=== PATIENT | female | born 1990 | race African-American/Black ===

== ENCOUNTER 2020-04-10 09:59 | Emergency (ER) | payer SELFPAY ==
[~2020-04-10] VITALS: Ht 162.6 cm; Wt 90.3 kg
[2020-04-10 10:04] VITALS: BP 119/81
--- NOTE | 2020-04-10 10:04 | NUR ---
Patient wheelchair assisted to bed 6.
--- NOTE | 2020-04-10 10:15 | NUR ---
PATIENT PRESENTS TO ED WITH ADULT ASTHMA EXACERBATION THIS MORNING. PT STATES HER AT HOME INHALER DID NOT IMPROVE HER SYMPTOMS. DENIES N/V/D; SKIN IS PINK/WARM/DRY; AAOX4 WITH EVEN AND STEADY GAIT; LUNGS CLEAR BL; HR EVEN AND REGULAR; PT DENIES ANY FEVER, CP, SOB, OR COUGH AT THIS TIME; PATIENT STATES PAIN OF 0/10 AT THIS TIME; VSS; PATIENT POSITIONED FOR COMFORT; HOB ELEVATED; BEDRAILS UP X2; BED DOWN. ER MD MADE AWARE OF PT STATUS.
[2020-04-10] MEDS ORDERED: predniSONE 20 MG TAB PO ONE (10:20)
--- NOTE | 2020-04-10 10:58 | NUR ---
RT PROVIDED PATIENT WITH SPACER AND EDUCATED HER ON USAGE WITH [facility]I. PATIENT STABLE AND ALERT NO RESP DISTRESS NOTICED AT THIS TIME
[2020-04-10 11:36] VITALS: BP 120/83
== END 2020-04-10 11:37 | disposition home or self-care (01) ==
LOC: MED 09:59
DX: J45.901 Unspecified asthma with (acute) exacerbation (principal); F17.200 Nicotine dependence, unspecified, uncomplicated; Z71.6 Tobacco abuse counseling
CPT/HCPCS: 99283; J7512